=== PATIENT | female | born 1985 | race Hispanic/Latino ===

== ENCOUNTER 2016-11-12 20:00 | Emergency (ER) | payer SELFPAY ==
[2016-11-12] MEDS ORDERED: Ondansetron HCl/PF 4 MG/2 ML Vial ONE ×2 (20:03→20:06)
[2016-11-12 21:07] LABS: #Eosinphils 0.1 thou/uL (0.0-0.7); #Lymphocytes 1.6 thou/uL (1.20-3.40); #Monocytes 0.4 thou/uL (0.11-0.59); #Neutrophils 4.7 thou/uL (1.40-6.50); %Lymphocytes 24.2 % (21.0-51.0); %Monocytes 5.3 % (0.0-10.0); Hematocrit 37.8 % (36.0-47.0); Mean Platelet Volume 6.7 fL (7.4-10.4); Red Blood Cell (RBC) Count 4.32 mill/uL (4.20-5.40); White Blood Cell (WBC) Count 6.8 thou/uL (4.8-10.8)
[2016-11-12 21:18] LABS: ALT (SGPT) 22 U/L (8-55); AST (SGOT) 18 U/L (5-34); Alkaline Phosphatase 80 U/L (40-150); Anion Gap 13 mmol/L (10-20); BUN (Urea Nitrogen) 6 mg/dL (7.0-18.7); Bilirubin, Total 0.5 mg/dL (0.2-1.2); Calc. Creatinine Clearance 0 mL/min (70-130); Calcium 9.4 mg/dL (7.8-10.44); Carbon Dioxide 23 mmol/L (22-29); Chloride 102 mmol/L (98-107); Estimated GFR-MDRD Greater than 90; Globulin 4.1 g/dL (2.4-3.5); Protein, Total 7.9 g/dL (6.0-8.3)
[2016-11-12] MEDS ORDERED: Metoclopramide HCl 10 MG/2 ML VIAL ONE (21:33)
[2016-11-12] MEDS ORDERED: diphenhydrAMINE HCl 50 MG/ML 1 ML VIAL ONE (21:40)
[2016-11-12] MEDS ORDERED: Acetaminophen 325 MG TAB ONE (21:40)
[2016-11-12 22:02] LABS: Bilirubin Small (Negative); Blood, Urine Negative (Negative); Glucose, Urine (Dipstick) Negative (Negative); Ketone, Urine 40 mg/dL (Negative); Nitrite Negative (Negative); Protein, Urine (Dipstick) Negative (Neg-Trace)
[2016-11-12 22:04] LABS: Bacteria/HPF 4+ HPF (None Seen)
[2016-11-12 22:12] LABS: Hyaline Casts/LPF NONE SEEN LPF (0-3 Hyaline); RBC/HPF 0-3 HPF (0-3)
--- NOTE | 2016-11-12 22:54 | ULT ---
TRANSABDOMINAL PELVIC ULTRASOUND (Young scale, color flow and spectral doppler) 11/12/16 HISTORY: Hyperemesis. FINDINGS: Single live intrauterine gestation is seen with measurements corresponding to an estimated gestation al age of 9 weeks, 6 days and [place] at [birth year]17. The crown-rump length measures 3.03 cm. The heart rate measures 160 beats per minute. Flow is demonstrated in both ovaries. Ovaries have a normal kelby earance on either side. No free fluid is seen. IMPRESSION: Single live IUP of 9 weeks, 6 days estimated gestational age and [place] at [birth year]. POS: [facility]
== END 2016-11-13 00:05 | disposition home or self-care (01) ==
LOC: ERS 20:00
DX: O21.0 Mild hyperemesis gravidarum (principal); O23.41 Unspecified infection of urinary tract in pregnancy, first trimester; Z3A.09 9 weeks gestation of pregnancy; Z87.442 Personal history of urinary calculi
CPT/HCPCS: 76856; 80053; 81003; 81015; 84702; 85025; 93976; 96361; 96374; 96375; J1200; J2405; J2765

== ENCOUNTER 2017-11-01 11:36 | Emergency (ER) | payer SELFPAY ==
[2017-11-01] MEDS ORDERED: predniSONE 20 MG TAB ONE (14:07)
== END 2017-11-01 14:15 | disposition home or self-care (01) ==
LOC: ERS 11:36
DX: M32.9 Systemic lupus erythematosus, unspecified (principal)
CPT/HCPCS: 99283; J7506

== ENCOUNTER 2018-07-04 21:00 | Emergency (ER) | payer SELFPAY | END 2018-07-04 21:35 | disposition home or self-care (01) | LOC: ERS 21:00 | DX: L25.9 Unspecified contact dermatitis, unspecified cause (principal); M32.9 Systemic lupus erythematosus, unspecified | CPT/HCPCS: 99282 ==

== ENCOUNTER 2018-08-22 08:54 | Emergency (ER) | payer SELFPAY ==
--- NOTE | 2018-08-22 09:42 | CT ---
CT CERVICAL SPINE WITH CORONAL AND SAGITTAL REFORMATIONS: Date: 08/22/18 HISTORY: Neck pain. FINDINGS: Vertebral body heights are maintained. No fracture, subluxation, bony destruction, or facet malalignm ent is seen. There is loss of cervical lordosis. No significant central canal or neural foraminal farzad nosis seen. IMPRESSION: No significant abnormalities are identified. POS: [facility]
[2018-08-22] MEDS ORDERED: Ketorolac Tromethamine 30 MG/ML VIAL ONE (09:54)
== END 2018-08-22 10:12 | disposition home or self-care (01) ==
LOC: ERS 08:54
DX: M54.2 Cervicalgia (principal)
CPT/HCPCS: 72125; 96372; J1885

== ENCOUNTER 2019-12-28 23:55 | Emergency (ER) | payer SELFPAY ==
[2019-12-29] MEDS ORDERED: Ibuprofen 800 MG TAB ONE (00:22)
[2019-12-29] MEDS ORDERED: Acetaminophen 500 MG TAB ONE (00:22)
[2019-12-29 00:43] LABS: Bacteria/HPF 4+ HPF (None Seen); Bilirubin Negative (Negative); Blood, Urine 1+ (Negative); Clarity Clear (Clear); Glucose, Urine (Dipstick) Normal (Negative); Ketone, Urine Negative (Negative); Leukocyte 500 Leu/uL (Negative); Nitrite Negative (Negative); Protein, Urine (Dipstick) Negative (Neg-Trace); Specific Gravity, Urine 1.021 (1.002-1.036); Squamous Epithelial 0-3 HPF (0-3); Urobilinogen Normal mg/dL (Less than 2); WBC/HPF Greater than 50 HPF (0-3); pH, Urine 5.5 (5.0-9.0)
[2019-12-29] MEDS ORDERED: cefTRIAXone\\ROCEPHIN 250 MG VIAL ONE (01:47)
[2019-12-29] MEDS ORDERED: Lidocaine 1% PF 5 ML VIAL ONE (01:47)
== END 2019-12-29 02:21 | disposition home or self-care (01) ==
LOC: ERS 23:55
DX: M79.641 Pain in right hand (principal); M79.642 Pain in left hand; M25.531 Pain in right wrist; M25.532 Pain in left wrist; M25.561 Pain in right knee; M25.562 Pain in left knee; N30.00 Acute cystitis without hematuria
CPT/HCPCS: 81003; 81015; 96372; 99283; J0696

== ENCOUNTER 2020-03-30 16:35 | Emergency (ER) | payer SELFPAY ==
--- NOTE | 2020-03-30 17:22 | RAD ---
XR Wrist 3 Rt View STANDARD: 03/30/2020 5:00 PM CLINICAL INDICATION: Door jammed wrist COMPARISON: None. FINDINGS: Bones: No acute osseous abnormality. Joints: Joints space is preserved.. Soft Tissue: Normal.. IMPRESSION: No acute osseous abnormality..
--- NOTE | 2020-03-30 18:40 | RAD ---
THREE VIEWS RIGHT HAND: History: Door jammed wrist with hand and wrist pain. FINDINGS: Three views of the right hand shows no evidence of acute fracture or dislocation. There is soft tissu e swelling along the dorsal aspect of the wrist. No degenerative changes are seen. IMPRESSION: No evidence of acute osseous abnormality. POS: [facility]
[2020-03-30] MEDS ORDERED: traMADol HCl 50 MG TAB ONE (18:44)
== END 2020-03-30 18:46 | disposition home or self-care (01) ==
LOC: ERS 16:35
DX: S60.211A Contusion of right wrist, initial encounter (principal); W23.1XXA Caught, crushed, jammed, or pinched between stationary objects, initial encounter

== ENCOUNTER 2020-11-01 08:25 | Emergency (ER) | payer SELFPAY | END 2020-11-01 10:30 | disposition home or self-care (01) | LOC: ERS 08:25 | DX: M79.642 Pain in left hand (principal); M79.641 Pain in right hand; M79.89 Other specified soft tissue disorders | CPT/HCPCS: 99283 ==

== ENCOUNTER 2021-08-20 12:19 | Emergency (ER) | payer SELFPAY ==
[2021-08-20 13:29] LABS: Bacteria/HPF None Seen HPF (None Seen); Bilirubin Negative (Negative); Blood, Urine 2+ (Negative); Clarity Clear (Clear); Glucose, Urine (Dipstick) Normal (Negative); Ketone, Urine Negative (Negative); Leukocyte Negative Leu/uL (Negative); Nitrite Negative (Negative); Protein, Urine (Dipstick) Negative (Neg-Trace); RBC/HPF 21-50 HPF (0-3); Specific Gravity, Urine 1.022 (1.002-1.036); Squamous Epithelial 0-3 HPF (0-3); Urobilinogen Normal mg/dL (Less than 2); WBC/HPF 0-3 HPF (0-3); pH, Urine 7.5 (5.0-9.0)
[2021-08-20 13:32] LABS: Pregnancy Test - Urine (BHCG) Negative (Negative); Pregu Control Background? CLEAR/WHITE (CLR/WHITE); Pregu Control Bar Appear? YES (CONTROL BAR); Specific Gravity 1.022 (1.002-1.036)
[2021-08-20 14:12] LABS: #Eosinphils 0.2 thou/uL (0.0-0.7); #Lymphocytes 1.7 thou/uL (1.20-3.40); #Monocytes 0.5 thou/uL (0.11-0.59); %Basophils 0.4 % (0.0-1.0); %Eosinophils 3.2 % (0.0-10.0); %Lymphocytes 25.8 % (21.0-51.0); %Monocytes 8.4 % (0.0-10.0); %Neutrophils 62.2 % (42.0-75.0); Hemoglobin 12.1 g/dL (12.0-16.0); Mean Corpuscular HGB CONC 32.3 g/dL (32.0-36.0); Mean Corpuscular Hemoglobin 28.4 pg (27.0-31.0); Mean Corpuscular Volume 87.8 fL (78.0-98.0); Mean Platelet Volume 7.2 fL (7.4-10.4); Platelet Count 368 thou/uL (130-400); RBC Distribution Width 12.8 % (11.5-14.5); Red Blood Cell (RBC) Count 4.28 mill/uL (4.20-5.40); White Blood Cell (WBC) Count 6.4 thou/uL (4.8-10.8)
[2021-08-20 14:30] LABS: ALT (SGPT) 13 U/L (8-55); AST (SGOT) 15 U/L (5-34); Albumin 3.9 g/dL (3.5-5.0); Alkaline Phosphatase 50 U/L (40-110); Anion Gap 15 mmol/L (10-20); BUN (Urea Nitrogen) 8 mg/dL (7.0-18.7); Bilirubin, Total 0.3 mg/dL (0.2-1.2); Calc. Creatinine Clearance 0 mL/min (70-130); Calcium 8.5 mg/dL (7.8-10.44); Carbon Dioxide 20 mmol/L (22-29); Chloride 105 mmol/L (98-107); Estimated GFR 117; Glucose 87 mg/dL (70-105); Protein, Total 6.9 g/dL (6.0-8.3); Sodium 136 mmol/L (136-145)
[2021-08-20] MEDS ORDERED: Ketorolac Tromethamine 30 MG/ML VIAL ONE (14:37)
== END 2021-08-20 15:06 | disposition home or self-care (01) ==
LOC: ERS 12:19
DX: M54.50 Low back pain, unspecified (principal)
CPT/HCPCS: 36415; 74176; 80053; 81003; 81015; 81025; 85025; 96372; J1885

== ENCOUNTER 2024-02-05 17:55 | Emergency (ER) | payer SELFPAY ==
[2024-02-05] MEDS ORDERED: Dexamethasone 10 MG/ML VIAL ONE (20:22)
[2024-02-05] MEDS ORDERED: Ketorolac Tromethamine 10 MG TAB PO SCH (20:45)
== END 2024-02-05 21:15 | disposition home or self-care (01) ==
LOC: ERS 17:55
DX: M32.9 Systemic lupus erythematosus, unspecified (principal); Z75.8 Other problems related to medical facilities and other health care
CPT/HCPCS: 96372; 99282; J1100